=== PATIENT | female | born 1970 ===

== ENCOUNTER 2017-05-18 08:02 | Outpatient (CLI) | payer OTHER ==
[~2017-05-18 08:02] MED LIST: CATAFLAM50 MG PO
== END 2017-05-18 08:10 | disposition home or self-care (01) ==
LOC: RX STUDY 08:02
DX: K13.0 Diseases of lips (principal)

== ENCOUNTER → 2017-07-10 08:41 | Outpatient (CLI) | payer OTHER | END | disposition home or self-care (01) | LOC: LAB 08:41 | DX: D64.89 Other specified anemias (principal); N39.0 Urinary tract infection, site not specified; E03.8 Other specified hypothyroidism; R73.9 Hyperglycemia, unspecified; E78.9 Disorder of lipoprotein metabolism, unspecified; R19.09 Other intra-abdominal and pelvic swelling, mass and lump; E55.9 Vitamin D deficiency, unspecified; E72.11 Homocystinuria; N95.9 Unspecified menopausal and perimenopausal disorder; N95.1 Menopausal and female climacteric states ==

== ENCOUNTER 2018-05-18 08:08 | Outpatient (CLI) | payer OTHER | END 2018-05-18 08:17 | disposition home or self-care (01) | LOC: RX STUDY 08:08 | DX: R13.0 Aphagia (principal) ==